=== PATIENT | male | born 1990 | race Caucasian/White ===

== ENCOUNTER 2021-09-02 19:25 | Emergency (ER) | payer BC ==
[2021-09-02] MEDS ORDERED: Sodium Chloride 0.9% 10 ML Syringe FLUSH PRN (20:29)
[2021-09-02] MEDS ORDERED: Sodium Chloride 0.9% 1,000 ML IV ONE (20:30)
[2021-09-02] MEDS ORDERED: Morphine 4 MG/ML Syringe IVPUSH PRN (20:30)
[2021-09-02] MEDS ORDERED: Ondansetron 4 MG/2 ML SDV IVPUSH PRN (20:30)
[2021-09-02] MEDS ORDERED: Famotidine 20 MG/2 ML SDV IVPUSH ONE (20:31)
[2021-09-02] MEDS ORDERED: Morphine 4 MG/ML Syringe IVPUSH ONE (21:34)
--- NOTE | 2021-09-02 21:38 | EDM.PDOC ---
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 PMH--tobacco use d/o Meds--denies NKDA Tob--1ppd EtOH--rare Drugs--marijuana Denies having had COVID infection nor has he had his COVID immunization Onset: Today, Sudden Right Lower Abdomen Pain Score (Numeric/FACES): 10 - Related Data Allergies Allergy/AdvReac Type Severity Reaction Status Date / Time cat dander Allergy Swollen Verified 09/02/21 20:03 Eyes Home Meds: Home Meds NK [No Known Home Meds] 01/30/14 [History] Past Medical History - Past Health History Medical/Surgical History: Denies Medical/Surgical History Musculoskeletal History: Reports: Fracture Neurological History: Reports: Headaches, Chronic Psychiatric History: Reports: Learning Disability, Other (See Below) Other Psychiatric History: dyslexia - Infectious Disease History Infectious Disease History: Reports: Chicken Pox - Past Surgical History Musculoskeletal Surgical History: Reports: Other (See Below) Other Musculoskeletal Surgeries/Procedures:: might have a yaneli in [place] Social & Family History - Tobacco Use Tobacco Use Status *Q: Current Every Day Tobacco User Years of Tobacco use: 15 Packs/Tins Daily: 1 - Caffeine Use Caffeine Use: Reports: Coffee, Soda - Recreational Drug Use Recreational Drug Use: Yes Recreational Drug Type: Reports: Marijuana/Hashish ED ROS GENERAL - Review of Systems Review Of Systems: Comprehensive ROS is negative, except as noted in HPI. Constitutional: Reports: Chills. Denies: Fever HEENT: Reports: No Symptoms Respiratory: Reports: No Symptoms Cardiovascular: Reports: No Symptoms Endocrine: Reports: No Symptoms GI/Abdominal: Reports: Abdominal Pain, Constipation (reported to [facility] hard stool yesterday). Denies: Diarrhea, Decreased Appetite, Nausea, Vomiting : Reports: No Symptoms Musculoskeletal: Reports: No Symptoms Skin: Reports: No Symptoms Neurological: Reports: No Symptoms Psychiatric: Reports: No Symptoms Hematologic/Lymphatic: Reports: No Symptoms Immunologic: Reports: No Symptoms ED EXAM, GI/ABD - Physical Exam Exam: See Below Exam Limited By: No Limitations General Appearance: Alert, WD/WN, Moderate Distress (secondary to abdominal pain) Eyes: Bilateral: Normal Appearance, EOMI Ears: Normal External Exam, Hearing Grossly Normal Nose: Normal Inspection Throat/Mouth: Normal Inspection, Normal Lips, Normal Oropharynx, Normal Voice, No Airway Compromise Head: Atraumatic, Normocephalic Neck: Normal Inspection, Supple, Non-Tender, Full Range of Motion Respiratory/Chest: No Respiratory Distress, Lungs Clear, Normal Breath Sounds, Chest Non-Tender Cardiovascular: Normal Peripheral Pulses, Regular Rate, Rhythm, No Edema, No Murmur GI/Abdominal Exam: Normal Bowel Sounds, Soft, No Distention, Guarding, Rebound, Tender (Patient has right lower quadrant tenderness he also is noted to have referred rebound from the left side of his abdomen to the right lower quadrant.). No: Rigid (Male) Exam: Deferred Rectal (Males) Exam: Deferred Back Exam: Normal Inspection, Full Range of Motion Extremities: Normal Inspection, Normal Range of Motion, No Pedal Edema, Normal Capillary Refill Neurological: Alert, Oriented, CN II-XII Intact, Normal Cognition, No Motor/Sensory Deficits Psychiatric: Normal Affect, Normal Mood Skin Exam: Warm, Dry, Intact, Normal Color Course - Vital Signs Text/Narrative:: 2140--noted on review of labs to have elevated white blood cell as well as elevated lactate acid. Amylase lipase and LFTs. Normal urinalysis. Patient continues to have intermittent pain episodes that have decreased in nature somewhat per nurse at this time will order CT abdomen pelvis with contrast to evaluate right lower quadrant pain. Have also ordered a dose of IV antibiotics/Zosyn one-time dose of morphine additional to the every 2 hours order so that he may lay still on CT table 2245--in room to discuss with patient and mother at bedside today's ER findings. I did discuss that we are currently awaiting CT abdomen pelvis results as read read by radiology. He states that he continues to have pain in his when asked how he is doing he just states bad and he does describe further that he was doing fairly well until he had to go to CT and when she dye was pushed that he started having increasing abdominal pain. I will notify [facility] of patient's return of pain and he may have his next dose can due. Continue to monitor and update patient and family as results return 2330--in room to d/w patient and mother at bedside today's CT findings and further recommendations in home care/PCM follow up as well as medications. will d/c once UA returns 0015--UDS has returned with noted marijuana as patient reports but also positive for methamphetamine. opiates likely related to morphine given in the ER. UA is pending at this time 004--reviewed UA, no acute infectous concerns at this time. will give toradol & oral norco at this time, ready for d/c Last Recorded V/S: Last Vital Signs Temp 97.9 F 09/02/21 20:00 Pulse 76 09/02/21 20:00 Resp 24 H 09/02/21 20:00 BP 142/85 H 09/02/21 20:00 Pulse Ox 100 09/02/21 20:00 - Orders/Labs/Meds Orders: Active Orders 24 hr Category Date Time Status Nothing per Oral Now Diet [DIET] Diet 09/03/21 Breakfast Active CULTURE BLOOD [BC] Urgent Lab 09/02/21 22:06 Received CULTURE BLOOD [BC] Urgent Lab 09/02/21 22:28 Received Iopamidol [Isovue-300 (61%)] Med 09/02/21 21:45 Active 130 ml IV . DIRECTED Morphine Med 09/02/21 20:30 Active 4 mg IVPUSH Q2H PRN Ondansetron [Zofran] Med 09/02/21 20:30 Active 4 mg IVPUSH Q6H PRN Piperacillin/Tazobactam [Zosyn] 3.375 gm Med 09/02/21 21:45 Active Sodium Chloride 0.9% [Normal Saline AdvBag] 50 ml IV ONETIME Sodium Chloride 0.9% [Normal Saline] 80 ml Med 09/02/21 21:45 Active IV ASDIRECTED Sodium Chloride 0.9% [Saline Flush] Med 09/02/21 20:29 Active 10 ml FLUSH ASDIRECTED PRN Blood Culture x2 Reflex Set [OM.PC] Urgent Oth 09/02/21 21:56 Ordered Saline Lock Insert [OM.PC] Routine Oth 09/02/21 20:29 Ordered Medication Orders Piperacillin Sod/Tazobactam (Sod 3.375 gm/ Sodium Chloride) 50 mls @ 100 mls/hr IV ONETIME BOBBY Last Admin: 09/02/21 22:28 Dose: 100 mls/hr Documented by: JUNE Sodium Chloride (Normal Saline) 80 mls @ 3.3 mls/sec IV ASDIRECTED BOBBY Last Admin: 09/02/21 21:55 Dose: 3.3 mls/sec Documented by: PABLO Iopamidol (Iopamidol 612 Mg/Ml 150 Ml Bottle) 130 ml IV . DIRECTED BOBBY Last Admin: 09/02/21 21:55 Dose: 130 ml Documented by: PABLO Morphine Sulfate (Morphine 4 Mg/Ml Syringe) 4 mg IVPUSH Q2H PRN PRN Reason: Pain Last Admin: 09/02/21 20:48 Dose: 4 mg Documented by: JUNE Ondansetron HCl (Ondansetron 4 Mg/2 Ml Sdv) 4 mg IVPUSH Q6H PRN PRN Reason: Nausea/Vomiting Last Admin: 09/02/21 20:47 Dose: 4 mg Documented by: JUNE Sodium Chloride (Sodium Chloride 0.9% 10 Ml Syringe) 10 ml FLUSH ASDIRECTED PRN PRN Reason: Keep Vein Open Last Admin: 09/02/21 20:48 Dose: 10 ml Documented by: JUNE Labs: Laboratory Tests 09/02/21 09/02/21 09/02/21 Range/Units 20:35 20:35 20:35 WBC 12.6 H (4.5-11.0) K/uL RBC 5.17 (4.30-5.90) M/uL Hgb 16.7 H (12.0-15.0) g/dL Hct 47.0 (40.0-54.0) % MCV 91 (80-98) fL MCH 32 H (27-31) pg MCHC 36 (32-36) % Plt Count 258 (150-400) K/uL Neut % (Auto) 78.5 H (36-66) % Lymph % (Auto) 13.9 L (24-44) % Bailey % (Auto) 6.9 H (2-6) % Eos % (Auto) 0.4 L (2-4) % Baso % (Auto) 0.3 (0-1) % Sodium 138 L (140-148) mmol/L Potassium 4.4 (3.6-5.2) mmol/L Chloride 101 (100-108) mmol/L Carbon Dioxide 24 (21-32) mmol/L Anion Gap 17.4 H (5.0-14.0) mmol/L BUN 16 (7-18) mg/dL Creatinine 1.2 (0.8-1.3) mg/dL Est Cr Clr Drug Dosing 95.87 mL/min Estimated GFR (MDRD) > 60 (>60) Glucose 163 H (74-106) mg/dL Lactic Acid 3.4 H (0.4-2.0) mmol/L Calcium 9.5 (8.5-10.1) mg/dL Magnesium (1.8-2.4) mg/dL Total Bilirubin 0.3 (0.2-1.0) mg/dL AST 9 L (15-37) U/L ALT 18 (12-78) U/L Alkaline Phosphatase 75 (46-116) U/L C-Reactive Protein < 0.05 (0.0-0.3) mg/dL Total Protein 7.3 (6.4-8.2) g/dL Albumin 4.1 (3.4-5.0) g/dL Globulin 3.2 (2.3-3.5) g/dL Albumin/Globulin Ratio 1.3 (1.2-2.2) Amylase 52 (25-115) U/L Lipase 115 (73-393) U/L Urine Color (YELLOW) Urine Appearance (CLEAR) Urine pH (5.0-8.0) Ur Specific Pioneer (1.008-1.030) Urine Protein (NEGATIVE) mg/dL Urine Glucose (UA) (NEGATIVE) mg/dL Urine Ketones (NEGATIVE) mg/dL Urine Occult Blood (NEGATIVE) Urine Nitrite (NEGATIVE) Urine Bilirubin (NEGATIVE) Urine Urobilinogen (0.2-1.0) EU/dL Ur Leukocyte Esterase (NEGATIVE) Urine RBC (0-5) Urine WBC (0-5) Ur Epithelial Cells Amorphous Sediment Urine Bacteria Urine Mucus Urine Opiates Screen (NEGATIVE) Ur Oxycodone Screen (NEGATIVE) Urine Methadone Screen (NEGATIVE) Ur Propoxyphene Screen (NEGATIVE) Ur Barbiturates Screen (NEGATIVE) Ur Tricyclics Screen (NEGATIVE) Ur Phencyclidine Scrn (NEGATIVE) Ur Amphetamine Screen (NEGATIVE) U Methamphetamines Scrn (NEGATIVE) Urine MDMA Screen (NEGATIVE) U Benzodiazepines Scrn (NEGATIVE) U Cocaine Metab Screen (NEGATIVE) U Marijuana (THC) Screen (NEGATIVE) 09/02/21 09/02/21 09/02/21 Range/Units 20:35 23:00 23:00 WBC (4.5-11.0) K/uL RBC (4.30-5.90) M/uL Hgb (12.0-15.0) g/dL Hct (40.0-54.0) % MCV (80-98) fL MCH (27-31) pg MCHC (32-36) % Plt Count (150-400) K/uL Neut % (Auto) (36-66) % Lymph % (Auto) (24-44) % Bailey % (Auto) (2-6) % Eos % (Auto) (2-4) % Baso % (Auto) (0-1) % Sodium (140-148) mmol/L Potassium (3.6-5.2) mmol/L Chloride (100-108) mmol/L Carbon Dioxide (21-32) mmol/L Anion Gap (5.0-14.0) mmol/L BUN (7-18) mg/dL Creatinine (0.8-1.3) mg/dL Est Cr Clr Drug Dosing mL/min Estimated GFR (MDRD) (>60) Glucose (74-106) mg/dL Lactic Acid (0.4-2.0) mmol/L Calcium (8.5-10.1) mg/dL Magnesium 1.8 (1.8-2.4) mg/dL Total Bilirubin (0.2-1.0) mg/dL AST (15-37) U/L ALT (12-78) U/L Alkaline Phosphatase (46-116) U/L C-Reactive Protein (0.0-0.3) mg/dL Total Protein (6.4-8.2) g/dL Albumin (3.4-5.0) g/dL Globulin (2.3-3.5) g/dL Albumin/Globulin Ratio (1.2-2.2) Amylase (25-115) U/L Lipase (73-393) U/L Urine Color Yellow (YELLOW) Urine Appearance Clear (CLEAR) Urine pH 8.5 H (5.0-8.0) Ur Specific Pioneer 1.015 (1.008-1.030) Urine Protein Negative (NEGATIVE) mg/dL Urine Glucose (UA) Negative (NEGATIVE) mg/dL Urine Ketones Negative (NEGATIVE) mg/dL Urine Occult Blood Small H (NEGATIVE) Urine Nitrite Negative (NEGATIVE) Urine Bilirubin Negative (NEGATIVE) Urine Urobilinogen 0.2 (0.2-1.0) EU/dL Ur Leukocyte Esterase Negative (NEGATIVE) Urine RBC 0-5 (0-5) Urine WBC 0-5 (0-5) Ur Epithelial Cells Rare Amorphous Sediment Not seen Urine Bacteria Few Urine Mucus Not seen Urine Opiates Screen Presumptive positive H (NEGATIVE) Ur Oxycodone Screen Negative (NEGATIVE) Urine Methadone Screen Negative (NEGATIVE) Ur Propoxyphene Screen Negative (NEGATIVE) Ur Barbiturates Screen Negative (NEGATIVE) Ur Tricyclics Screen Negative (NEGATIVE) Ur Phencyclidine Scrn Negative (NEGATIVE) Ur Amphetamine Screen Negative (NEGATIVE) U Methamphetamines Scrn Presumptive positive H (NEGATIVE) Urine MDMA Screen Negative (NEGATIVE) U Benzodiazepines Scrn Negative (NEGATIVE) U Cocaine Metab Screen Negative (NEGATIVE) U Marijuana (THC) Screen Presumptive positive H (NEGATIVE) Laboratory Tests 09/02/21 09/02/21 09/02/21 20:35 20:35 20:35 WBC 12.6 H Neut % (Auto) 78.5 H Sodium 138 L Anion Gap 17.4 H Lactic Acid 3.4 H C-Reactive Protein < 0.05 Meds: Medications Generic Name Dose Route Start Last Admin Trade Name Freq PRN Reason Stop Dose Admin Piperacillin Sod/Tazobactam 50 mls @ 100 mls/hr 09/02/21 21:45 09/02/21 22:28 Sod 3.375 gm/ Sodium Chloride IV 100 mls/hr ONETIME BOBBY Administration Sodium Chloride 80 mls @ 3.3 mls/sec 09/02/21 21:45 09/02/21 21:55 Normal Saline IV 3.3 mls/sec ASDIRECTED BOBBY Administration Iopamidol 130 ml 09/02/21 21:45 09/02/21 21:55 Iopamidol 612 Mg/Ml 150 Ml Bottle IV 130 ml . DIRECTED BOBBY Administration Morphine Sulfate 4 mg 09/02/21 20:30 09/02/21 20:48 Morphine 4 Mg/Ml Syringe IVPUSH 4 mg Q2H PRN Administration Pain Ondansetron HCl 4 mg 09/02/21 20:30 09/02/21 20:47 Ondansetron 4 Mg/2 Ml Sdv IVPUSH 4 mg Q6H PRN Administration Nausea/Vomiting Sodium Chloride 10 ml 09/02/21 20:29 09/02/21 20:48 Sodium Chloride 0.9% 10 Ml Syringe FLUSH 10 ml ASDIRECTED PRN Administration Keep Vein Open Discontinued Medications Generic Name Dose Route Start Last Admin Trade Name Freq PRN Reason Stop Dose Admin Famotidine 20 mg 09/02/21 20:31 09/02/21 20:48 Famotidine 20 Mg/2 Ml Sdv IVPUSH 09/02/21 20:32 20 mg ONETIME ONE Administration Sodium Chloride 1,000 mls @ 500 mls/hr 09/02/21 20:30 09/02/21 20:47 Normal Saline IV 09/02/21 22:29 500 mls/hr .BOLUS ONE Administration Morphine Sulfate 4 mg 09/02/21 21:34 09/02/21 21:42 Morphine 4 Mg/Ml Syringe IVPUSH 09/02/21 21:35 4 mg ONETIME ONE Administration Tamsulosin HCl 0.4 mg 09/02/21 23:14 09/02/21 23:22 Tamsulosin 0.4 Mg Cap.Er PO 09/02/21 23:15 0.4 mg ONETIME ONE Administration - Radiology Interpretation CT Results Date: 09/02/21 CT Results Time: 23:13 (CT abdomen pelvis with IV contrast is negative with the following impression recurrent distal right ureteral calculus gross ATV take junction measuring 3 to 4 mm with some mild right hydronephrosis report for full details) Departure - Departure Time of Disposition: 00:45 Disposition: Home, Self-Care 01 Condition: Good Clinical Impression: Right nephrolithiasis, Dehydration, Methamphetamine abuse, Marijuana use, Elevated blood pressure reading Hydronephrosis Qualifiers: Hydronephrosis type: with ureteropelvic junction obstruction Qualified Code(s): Q62.11 - Congenital occlusion of ureteropelvic junction - Discharge Information *PRESCRIPTION DRUG MONITORING PROGRAM REVIEWED*: Yes *COPY OF PRESCRIPTION DRUG MONITORING REPORT IN PATIENT DEYSI: Not Applicable Instructions: Kidney Stones, [id number], Hydronephrosis, Dietary Guidelines to Help Prevent Kidney Stones, Dehydration, Adult Referrals: PCP,None [Primary Care Provider] - Forms: ED Department Discharge Additional Instructions: It is recommended that you follow-up with your primary care provider or the primary care clinic care located at [facility] in the next 2 to 3 days regarding darlyn's ER visit and diagnosis of kidney stone on the right side with mild hydronephrosis which is fluid in the kidney. You are having further difficulty passing kidney stone and unable to pass it you may require referral to urology for further evaluation and care I have provided you with an anti-inflammatory called ketorolac (Toradol)--presents for moderate pain and discomfort as well as the anti- inflammatory effects. Do not use any ibuprofen (Motrin, Advil) or naproxen (Aleve) which is available [id number] anesthesia in the same medications as the ketorolac that I have provided prescription strength for your pain. Doubling of these medications is not good for your kidneys. I also provided you with a limited amount of pain medication for severe pain discomfort. This medication is hydrocodone/acetaminophen ([place]). You will need to be seen in the clinic should you need further refills of this medication as we do not provide that in the emergency room Ensure that you are drinking plenty of fluidswater, juice, sports drinks of choice to stay well-hydrated and help flush your kidneys to help move this kidney stone through. You may also use cranberry juice (please read the label as you may find that most cranberry juice products are truly cranberry cocktail and contain little cranberry juice and more sugar water) Sepsis Event Note (ED) - Focused Exam Vital Signs: Vital Signs Temp Pulse Resp BP Pulse Ox 09/02/21 20:00 97.9 F 76 24 H 142/85 H 100 - My Orders Last 24 Hours: My Active Orders 09/02/21 20:29 Sodium Chloride 0.9% [Saline Flush] 10 ml FLUSH ASDIRECTED PRN Saline Lock Insert [OM.PC] Routine 09/02/21 20:30 Morphine 4 mg IVPUSH Q2H PRN Ondansetron [Zofran] 4 mg IVPUSH Q6H PRN 09/02/21 21:45 Iopamidol [Isovue-300 (61%)] 130 ml IV . DIRECTED Piperacillin/Tazobactam [Zosyn] 3.375 gm Sodium Chloride 0.9% [Normal Saline AdvBag] 50 ml IV ONETIME Sodium Chloride 0.9% [Normal Saline] 80 ml IV ASDIRECTED 09/02/21 21:56 Blood Culture x2 Reflex Set [OM.PC] Urgent 09/02/21 22:06 CULTURE BLOOD [BC] Urgent 09/02/21 22:28 CULTURE BLOOD [BC] Urgent 09/03/21 Breakfast Nothing per Oral Now Diet [DIET] - Assessment/Plan Last 24 Hours: My Active Orders 09/02/21 20:29 Sodium Chloride 0.9% [Saline Flush] 10 ml FLUSH ASDIRECTED PRN Saline Lock Insert [OM.PC] Routine 09/02/21 20:30 Morphine 4 mg IVPUSH Q2H PRN Ondansetron [Zofran] 4 mg IVPUSH Q6H PRN 09/02/21 21:45 Iopamidol [Isovue-300 (61%)] 130 ml IV . DIRECTED Piperacillin/Tazobactam [Zosyn] 3.375 gm Sodium Chloride 0.9% [Normal Saline AdvBag] 50 ml IV ONETIME Sodium Chloride 0.9% [Normal Saline] 80 ml IV ASDIRECTED 09/02/21 21:56 Blood Culture x2 Reflex Set [OM.PC] Urgent 09/02/21 22:06 CULTURE BLOOD [BC] Urgent 09/02/21 22:28 CULTURE BLOOD [BC] Urgent 09/03/21 Breakfast Nothing per Oral Now Diet [DIET]
[2021-09-02] MEDS ORDERED: Piperacillin/Tazobactam 3.375 GM in Sodium Chloride 0.9% 50 ML IV SCH (21:45)
[2021-09-02] MEDS ORDERED: Iopamidol 612 MG/ML 150 ML Bottle IV SCH (21:45)
[2021-09-02] MEDS ORDERED: Sodium Chloride 0.9% 80 ML IV SCH (21:45)
--- NOTE | 2021-09-02 22:49 | CRLCT ---
For Patients: As a result of the Century Cures Act, medical imaging exams and procedure reports are released immediately into your electronic medical record. You may view this report before your referring provider. If you have questions, please contact your health care provider. INDICATION: Right lower quadrant abdominal pain, elevated WBC and lactic acid. TECHNIQUE: CT abdomen and pelvis acquired with 130 cc Isovue-300 IV contrast. COMPARISON: None. FINDINGS: Lower chest: Unremarkable. Liver: Unremarkable. Normal in size and attenuation. No suspicious masses. Gallbladder and bile ducts: Unremarkable. No stones or inflammation. No biliary dilation. Pancreas: Unremarkable. No mass or inflammation. Spleen: Unremarkable. Normal in size. No masses. Adrenal glands: Unremarkable. No nodules. Kidneys: Calcification at the right ureterovesicular junction measures approximately 3-4 mm (3/197) results in mild right hydronephrosis and hydroureter, along with a delayed right nephrogram. Several nonobstructing calcifications in the left kidney, which shows congenital malrotation. GI tract: Unremarkable. Normal in caliber. No sign of mass or inflammation. Normal appendix. Vasculature: Unremarkable. Mesenteric arteries are patent. Lymph nodes: No lymphadenopathy. Omentum/Peritoneum/Abdominal Wall: Unremarkable. No sign of mass or infiltration. No free air or significant free fluid. Pelvis: Unremarkable. Bones: Unremarkable for age. IMPRESSION: Distal right ureteral calcification at the UVJ measures 3-4 mm and results in mild right hydronephrosis and delayed nephrogram. Please note that all CT scans at this facility use dose modulation, iterative reconstruction, and/or weight-based dosing when appropriate to reduce radiation dose to as low as reasonably achievable. Dictated by Milo Geronimo MD @ 09/02/2021 10:48:43 PM (Electronically Signed)
[2021-09-02] MEDS ORDERED: Tamsulosin 0.4 MG Cap.ER PO ONE (23:14)
[2021-09-03] MEDS ORDERED: Ketorolac 30 MG/ML SDV IVPUSH ONE (00:45)
[2021-09-03] MEDS ORDERED: Acetaminophen/HYDROcodone 325-5 MG Tab PO ONE (00:46)
[2021-09-03] MEDS ORDERED: Ondansetron 4 MG/2 ML SDV IVPUSH ONE (00:47)
== END 2021-09-03 01:11 | disposition home or self-care (01) ==
LOC: JP.ED 19:25
DX: N13.2 Hydronephrosis with renal and ureteral calculous obstruction (principal); E86.0 Dehydration; F15.10 Other stimulant abuse, uncomplicated; F12.90 Cannabis use, unspecified, uncomplicated; R03.0 Elevated blood-pressure reading, without diagnosis of hypertension; F17.210 Nicotine dependence, cigarettes, uncomplicated; Z91.09 Other allergy status, other than to drugs and biological substances
CPT/HCPCS: 36415; 74177; 80053; 80305; 81001; 82150; 83605; 83690; 83735; 85025; 86140; 87040; 96365; 96375; 96376; 99284; A9270; J1885; J2270; J2405; J2543; J3490; J7030; Q9967

== ENCOUNTER 2021-12-21 13:18 | Emergency (ER) | payer BC ==
[2021-12-21] MEDS ORDERED: Ketorolac 30 MG/ML SDV IM ONE (13:55)
[2021-12-21] MEDS ORDERED: HYDROmorphone 1 MG/ML Syringe IM ONE (14:36)
== END 2021-12-21 15:53 | disposition home or self-care (01) ==
LOC: JP.ED 13:18
DX: N13.2 Hydronephrosis with renal and ureteral calculous obstruction (principal); Z91.09 Other allergy status, other than to drugs and biological substances; Z72.0 Tobacco use
CPT/HCPCS: 74176; 96372; 96374; 99283; 99284-25; J1170; J1885

== ENCOUNTER 2023-01-25 09:50 | Inpatient (IN) | payer BC ==
[2023-01-25] MEDS ORDERED: LORazepam 2 MG/ML SDV IVPUSH ONE (10:25)
[2023-01-25] MEDS ORDERED: Sodium Chloride 0.9% 1,000 ML IV SCH (10:30)
[2023-01-25 10:38] LABS: BASOPHILS PERCENT AUTO 0.1 % (0.1-1.3); HEMATOCRIT 44.4 % (38.4-49.7); HEMOGLOBIN 15.2 g/dL (12.9-16.9); IMMATURE GRAN ABSOLUTE AUTO 0.03 K/uL (0.00-0.23); IMMATURE GRAN PERCENT AUTO 0.3 % (0.0-0.7); LYMPHOCYTES ABSOLUTE AUTO 0.94 K/uL (0.8-3.3); LYMPHOCYTES PERCENT AUTO 8.5 % (11.4-47.7); MEAN CORPUSCULAR HEMOGLOBIN 32.3 pg (31.6-35.5); MEAN CORPUSCULAR HGB CONC 34.2 g/dL (31.6-35.5); MEAN CORPUSCULAR VOLUME 94.5 fL (81.4-99.0); MONOCYTES ABSOLUTE AUTO 0.34 K/uL (0.20-0.90); MONOCYTES PERCENT AUTO 3.1 % (3.3-12.6); NEUTROPHILS ABSOLUTE AUTO 9.77 K/uL (1.0-7.6); PLATELET COUNT,PLT 178 K/uL (130-375); WHITE BLOOD CELL COUNT,WBC 11.1 K/uL (3.2-11.0)
[2023-01-25 10:39] LABS: BASOPHILS ABSOLUTE AUTO 0.01 K/uL (0.00-0.10)
[2023-01-25] MEDS ORDERED: Ketorolac 15 MG/ML SDV IVPUSH ONE (10:53)
[2023-01-25 10:54] LABS: A/G RATIO 0.8 (1.2-2.2); ALANINE AMINOTRANSFERASE,ALT 13 U/L (12-78); ALKALINE PHOSPHATASE 76 U/L (46-116); ANION GAP 12.9 mmol/L (5.0-14.0); ASPARTATE AMNIOTRANSFERASE,AST 21 U/L (15-37); BILIRUBIN TOTAL 1.2 mg/dL (0.2-1.0); BLOOD UREA NITROGEN,BUN 24 mg/dL (7-18); CALCIUM 8.5 mg/dL (8.5-10.1); CARBON DIOXIDE,CO2 25 mmol/L (21-32); CHLORIDE,CL 93 mmol/L (100-108); CREATININE 1.8 mg/dL (0.8-1.3); EST CRCL DRUG DOSING (CG) 62.75 mL/min; ESTIMATED GFR 51 mL/min (>60); GLUCOSE RANDOM 106 mg/dL (74-106); POTASSIUM,K 3.9 mmol/L (3.6-5.2); PROTEIN TOTAL,TP 6.9 g/dL (6.4-8.2); SODIUM,NA 127 mmol/L (140-148)
[2023-01-25] MEDS ORDERED: Meropenem 1 GM in Sodium Chloride 0.9% 100 ML IV ONE (11:11)
[2023-01-25 13:05] LABS: CORONAVIRUS COVID-19 NAA NEGATIVE (NEGATIVE); INFLUENZA A NAA NEGATIVE (NEGATIVE); INFLUENZA B NAA NEGATIVE (NEGATIVE); RESPIRATORY SYNCYTIAL VIR NAA NEGATIVE (NEGATIVE)
[2023-01-25] MEDS ORDERED: Ondansetron 4 MG/2 ML SDV IV PRN (14:46)
[2023-01-25] MEDS ORDERED: Nicotine 21 MG/24 Hr Patch TRDERM PRN (14:46)
[2023-01-25] MEDS ORDERED: Magnesium Hydroxide 400 MG/5 ML Susp 30 ML Cup PO PRN (14:46)
[2023-01-25] MEDS ORDERED: Ondansetron 4 MG Tab.DIS PO PRN (14:46)
[2023-01-25] MEDS ORDERED: Acetaminophen 325 MG Tab PO PRN (14:46)
[2023-01-25 15:04] LABS: APPEARANCE,URINE SLIGHTLY CLOUDY (CLEAR); BILIRUBIN,URINE SMALL (NEGATIVE); GLUCOSE,URINE NEGATIVE (NEGATIVE); KETONES,URINE NEGATIVE (NEGATIVE); LEUKOCYTE ESTERASE,URINE NEGATIVE (NEGATIVE); NITRITE,URINE NEGATIVE (NEGATIVE); OCCULT BLOOD,URINE NEGATIVE (NEGATIVE); PH,URINE 5.5 (5.0-8.0); PROTEIN,URINE 100 mg/dL (NEGATIVE); UROBILINOGEN,URINE 0.2 EU/dL (0.2-1.0)
[2023-01-25 15:17] LABS: AMORPHOUS SEDIMENT,URINE FEW; BACTERIA,URINE MODERATE; COLOR,URINE OTHER (YELLOW); EPITHELIAL CELLS,URINE FEW; MUCUS,URINE FEW; RBC,URINE 0-5 (0-5)
[2023-01-25 15:18] LABS: AMPHETAMINES SCREEN, URINE PRESUMPTIVE POSITIVE (NEGATIVE); BARBITURATE SCREEN,URINE NEGATIVE (NEGATIVE); BENZODIAZEPINES SCREEN,URINE NEGATIVE (NEGATIVE); METHADONE SCREEN, URINE NEGATIVE (NEGATIVE); METHAMPHETAMINES SCREEN, URINE PRESUMPTIVE POSITIVE (NEGATIVE); OXYCODONE SCREEN,URINE PRESUMPTIVE POSITIVE (NEGATIVE)
[2023-01-25 15:19] LABS: PROPOXYPHENE SCREEN,URINE NEGATIVE (NEGATIVE); THC SCREEN,URINE 50 NG/ML PRESUMPTIVE POSITIVE (NEGATIVE)
[2023-01-25] MEDS: Sodium Chloride 0.9% 1,000 ML IV SCH (15:49)
[2023-01-25] MEDS: oxyCODONE 5 MG Tab PO PRN (15:58)
[2023-01-25 16:46] LABS: CALCIUM 8.2 mg/dL (8.5-10.1); EST CRCL DRUG DOSING (CG) 56.48 mL/min; POTASSIUM,K 3.8 mmol/L (3.6-5.2)
[2023-01-25 16:57] LABS: ANION GAP 11.8 mmol/L (5.0-14.0)
[2023-01-25] MEDS: Meropenem 1 GM in Sodium Chloride 0.9% 100 ML IV SCH (19:58)
[2023-01-25] MEDS: Lactobacillus Rhamnosus GG (Probiotic) Cap PO SCH (20:00)
[2023-01-25] MEDS ORDERED: Pantoprazole 40 MG Tab.CR PO SCH (21:00)
[2023-01-26] MEDS: oxyCODONE 5 MG Tab PO PRN ×2 (00:45→05:01)
[2023-01-26] MEDS ORDERED: Ketorolac 15 MG/ML SDV IVPUSH ONE (00:45)
[2023-01-26] MEDS ORDERED: Ketorolac 15 MG/ML SDV ONE (00:45)
[2023-01-26] MEDS: Sodium Chloride 0.9% 1,000 ML IV SCH (00:46)
[2023-01-26] MEDS: Meropenem 1 GM in Sodium Chloride 0.9% 100 ML IV SCH ×3 (03:03→14:06)
[2023-01-26 04:36] LABS: HEMATOCRIT 36.5 % (38.4-49.7); HEMOGLOBIN 12.5 g/dL (12.9-16.9); MEAN CORPUSCULAR HEMOGLOBIN 32.9 pg (31.6-35.5); MEAN CORPUSCULAR HGB CONC 34.2 g/dL (31.6-35.5); MEAN CORPUSCULAR VOLUME 96.1 fL (81.4-99.0); RED BLOOD CELL COUNT 3.8 M/uL (4.14-5.76); WHITE BLOOD CELL COUNT,WBC 7.6 K/uL (3.2-11.0)
[2023-01-26 05:47] LABS: CREATININE 1.4 mg/dL (0.8-1.3); EST CRCL DRUG DOSING (CG) 80.68 mL/min; POTASSIUM,K 3.5 mmol/L (3.6-5.2)
[2023-01-26 05:48] LABS: ANION GAP 9.5 mmol/L (5.0-14.0)
[2023-01-26] MEDS ORDERED: Lidocaine 1% with EPINEPHrine 1:100,000 50 ML MDV ONE (07:42)
[2023-01-26] MEDS ORDERED: Meropenem 500 MG SDV ONE ×3 (07:42→11:29)
[2023-01-26] MEDS ORDERED: Bupivacaine 0.5% 50 ML MDV ONE (07:42)
[2023-01-26] MEDS ORDERED: Dextrose 5%-Lactated Ringers 1,000 ML IV SCH (07:45)
[2023-01-26] MEDS ORDERED: Naloxone 0.4 MG/ML SDV IVPUSH PRN ×2 (07:49→10:54)
[2023-01-26] MEDS ORDERED: HYDROmorphone/Normal Saline 6 MG/30 ML PCA Vial IV PRN (07:49)
[2023-01-26] MEDS ORDERED: diphenhydrAMINE 50 MG/ML SDV IVPUSH PRN ×2 (07:49→10:54)
[2023-01-26] MEDS ORDERED: diphenhydrAMINE 25 MG Cap PO PRN ×2 (07:49→10:54)
[2023-01-26] MEDS ORDERED: Ondansetron 4 MG/2 ML SDV IVPUSH PRN ×2 (07:49→10:54)
[2023-01-26] MEDS: Lactobacillus Rhamnosus GG (Probiotic) Cap PO SCH (08:15)
[2023-01-26] MEDS ORDERED: Dexamethasone 4 MG/ML SDV ONE (09:33)
[2023-01-26] MEDS ORDERED: Succinylcholine 200 MG/10 ML MDV ONE (09:33)
[2023-01-26] MEDS ORDERED: Propofol 200 MG/20 ML SDV ONE (09:33)
[2023-01-26] MEDS ORDERED: Rocuronium 50 MG/5 ML Vial ONE ×2 (09:33→10:32)
[2023-01-26] MEDS ORDERED: Ondansetron 4 MG/2 ML SDV ONE (09:33)
[2023-01-26] MEDS ORDERED: Glycopyrrolate 0.2 MG/ML 5 ML MDV ONE (09:33)
[2023-01-26] MEDS ORDERED: Neostigmine Methylsulfate 1 MG/ML 5 ML Syringe ONE (09:33)
[2023-01-26] MEDS ORDERED: fentaNYL 250 MCG/5 ML SDV ONE ×2 (09:35→10:32)
[2023-01-26] MEDS ORDERED: Linezolid 600 MG/300 ML Premix Bag IRR ONE ×3 (11:00→11:30)
[2023-01-26] MEDS ORDERED: Ketamine 22 MG in Sodium Chloride 0.9% 19.78 ML IV SCH (11:00)
[2023-01-26] MEDS ORDERED: Ropivacaine 46 ML, dexAMETHasone 8 MG, EPINEPHrine 0.4 MG, Sodium Chloride 0.9% 31.6 ML NERVRT SCH ×4 (11:00)
[2023-01-26] MEDS ORDERED: Ketamine 500 MG/5 ML MDV IV SCH (11:00)
[2023-01-26] MEDS ORDERED: Lactated Ringers 1,000 ML ONE (11:02)
[2023-01-26] MEDS ORDERED: Labetalol 20 MG/4 ML Syringe ONE (11:21)
[2023-01-26] MEDS: Linezolid 600 MG in Premix Bag 1 BAG IV SCH (13:17)
[2023-01-26] MEDS ORDERED: Scopolamine 1.5 MG Transdermal Patch TOP SCH (13:30)
[2023-01-26] MEDS: HYDROmorphone/Normal Saline 6 MG/30 ML PCA Vial IV PRN (13:44)
[2023-01-26] MEDS ORDERED: Ondansetron 4 MG/2 ML SDV IV PRN (13:56)
[2023-01-26] MEDS: Dextrose 5%-Lactated Ringers 1,000 ML IV SCH ×2 (15:01→21:19)
[2023-01-26] MEDS: VERIFY SCOP PATCH SCH (16:30)
[2023-01-26] MEDS: Meropenem 500 MG in Sodium Chloride 0.9% 50 ML IV SCH ×2 (16:30→22:12)
[2023-01-26] MEDS: Pantoprazole 40 MG Vial IV SCH (16:30)
[2023-01-26] MEDS: Acetaminophen 500 MG Tab PO SCH ×2 (17:48→23:34)
[2023-01-26] MEDS ORDERED: ClonazePAM 0.5 MG Tab PO PRN (18:53)
[2023-01-26] MEDS ORDERED: cloNIDine 0.1 MG Tab PO PRN (19:13)
[2023-01-26] MEDS ORDERED: cloNIDine 0.1 MG Tab PO SCH (19:15)
[2023-01-26] MEDS: cloNIDine 0.1 MG Tab PO PRN (19:52)
[2023-01-26] MEDS: Bisacodyl 5 MG Tab PO SCH (22:11)
[2023-01-26] MEDS: Docusate Sodium 100 MG Cap PO SCH (22:11)
[2023-01-26] MEDS: Tamsulosin 0.4 MG Cap.ER PO SCH (22:12)
[2023-01-26] MEDS: Celecoxib 200 MG Cap PO SCH (22:12)
[2023-01-27] MEDS: Linezolid 600 MG in Premix Bag 1 BAG IV SCH ×2 (02:21→14:41)
[2023-01-27] MEDS: cloNIDine 0.1 MG Tab PO PRN (02:44)
[2023-01-27] MEDS: Meropenem 500 MG in Sodium Chloride 0.9% 50 ML IV SCH ×4 (03:55→21:09)
[2023-01-27] MEDS: Dextrose 5%-Lactated Ringers 1,000 ML IV SCH ×2 (05:36→13:41)
[2023-01-27] MEDS: Acetaminophen 500 MG Tab PO SCH ×4 (05:50→23:06)
[2023-01-27] MEDS ORDERED: Cyclobenzaprine 10 MG Tab PO PRN ×2 (07:32→16:54)
[2023-01-27] MEDS ORDERED: Haloperidol Lactate 5 MG/ML SDV IVPUSH PRN (07:32)
[2023-01-27] MEDS: Albuterol/Ipratropium 3.0-0.5 MG/3 ML Neb Soln NEB SCH ×3 (07:49→19:51)
[2023-01-27] MEDS: Celecoxib 200 MG Cap PO SCH ×2 (08:11→21:06)
[2023-01-27] MEDS: Docusate Sodium 100 MG Cap PO SCH ×2 (08:11→21:06)
[2023-01-27] MEDS: Enoxaparin 40 MG/0.4 ML Syringe SUBCUT SCH (08:12)
[2023-01-27] MEDS: VERIFY SCOP PATCH SCH (08:13)
[2023-01-27] MEDS: Bisacodyl 5 MG Tab PO SCH ×2 (08:16→21:05)
[2023-01-27] MEDS: HYDROmorphone/Normal Saline 6 MG/30 ML PCA Vial IV PRN (08:37)
[2023-01-27] MEDS: Potassium Chloride 20 MEQ, Lidocaine 1% 2 ML in Sodium Chloride 0.9% 100 ML IV SCH ×3 (10:42→14:44)
[2023-01-27] MEDS: Pantoprazole 40 MG Vial IV SCH (15:46)
[2023-01-27] MEDS: Tamsulosin 0.4 MG Cap.ER PO SCH (21:05)
[2023-01-28] MEDS: Dextrose 5%-Lactated Ringers 1,000 ML IV SCH ×2 (00:17→12:25)
[2023-01-28] MEDS: HYDROmorphone/Normal Saline 6 MG/30 ML PCA Vial IV PRN ×3 (01:43→22:52)
[2023-01-28] MEDS: Albuterol/Ipratropium 3.0-0.5 MG/3 ML Neb Soln NEB SCH ×4 (01:48→19:44)
[2023-01-28] MEDS: Linezolid 600 MG in Premix Bag 1 BAG IV SCH (01:52)
[2023-01-28] MEDS: Meropenem 500 MG in Sodium Chloride 0.9% 50 ML IV SCH ×4 (04:13→21:31)
[2023-01-28 04:45] LABS: HEMATOCRIT 32.7 % (38.4-49.7); MEAN CORPUSCULAR HEMOGLOBIN 32.3 pg (31.6-35.5); MEAN CORPUSCULAR HGB CONC 33.6 g/dL (31.6-35.5); MEAN CORPUSCULAR VOLUME 95.9 fL (81.4-99.0); RED BLOOD CELL COUNT 3.41 M/uL (4.14-5.76)
[2023-01-28 05:14] LABS: A/G RATIO 0.5 (1.2-2.2); ALANINE AMINOTRANSFERASE,ALT 13 U/L (12-78); ALBUMIN 1.8 g/dL (3.4-5.0); ALKALINE PHOSPHATASE 62 U/L (46-116); ASPARTATE AMNIOTRANSFERASE,AST 18 U/L (15-37); BILIRUBIN TOTAL 0.3 mg/dL (0.2-1.0); BLOOD UREA NITROGEN,BUN 11 mg/dL (7-18); CALCIUM 7.6 mg/dL (8.5-10.1); CARBON DIOXIDE,CO2 31 mmol/L (21-32); CHLORIDE,CL 98 mmol/L (100-108); CREATININE 0.9 mg/dL (0.8-1.3); ESTIMATED GFR 116 mL/min (>60); GLUCOSE RANDOM 145 mg/dL (74-106); MAGNESIUM 1.6 mg/dL (1.8-2.4); PHOSPHORUS 1.6 mg/dL (2.5-4.9); POTASSIUM,K 3.2 mmol/L (3.6-5.2); PROTEIN TOTAL,TP 5.4 g/dL (6.4-8.2); SODIUM,NA 133 mmol/L (140-148)
[2023-01-28 05:17] LABS: ANION GAP 7.2 mmol/L (5.0-14.0)
[2023-01-28] MEDS: Acetaminophen 500 MG Tab PO SCH ×4 (05:41→23:47)
[2023-01-28] MEDS ORDERED: Potassium Phosphates 3 mMole/ML 15 ML SDV IV ONE (07:28)
[2023-01-28] MEDS ORDERED: Potassium Chloride 20 MEQ Tab.ER PO ONE ×2 (08:15→12:00)
[2023-01-28] MEDS: Celecoxib 200 MG Cap PO SCH ×2 (08:24→21:31)
[2023-01-28] MEDS: Bisacodyl 5 MG Tab PO SCH ×2 (08:24→21:31)
[2023-01-28] MEDS: Docusate Sodium 100 MG Cap PO SCH ×2 (08:25→21:31)
[2023-01-28] MEDS: VERIFY SCOP PATCH SCH (08:25)
[2023-01-28] MEDS: Enoxaparin 40 MG/0.4 ML Syringe SUBCUT SCH (08:25)
[2023-01-28] MEDS: Albumin Human 25 GM in Premix Bag 1 BAG IV SCH ×2 (08:38→16:06)
[2023-01-28] MEDS: Scopolamine 1.5 MG Transdermal Patch TOP SCH (10:20)
[2023-01-28] MEDS: Potassium Phos in 0.9 % NaCl 15 MMOL in Premix Bag 1 BAG IV SCH ×8 (10:49→19:43)
[2023-01-28] MEDS: Pantoprazole 40 MG Vial IV SCH (15:44)
[2023-01-28] MEDS: Tamsulosin 0.4 MG Cap.ER PO SCH (21:31)
[2023-01-29] MEDS: Meropenem 500 MG in Sodium Chloride 0.9% 50 ML IV SCH ×4 (03:01→23:55)
[2023-01-29] MEDS: Albuterol/Ipratropium 3.0-0.5 MG/3 ML Neb Soln NEB SCH ×4 (03:01→20:24)
[2023-01-29 05:04] LABS: HEMATOCRIT 33.3 % (38.4-49.7); HEMOGLOBIN 11.3 g/dL (12.9-16.9); MEAN CORPUSCULAR HEMOGLOBIN 32.7 pg (31.6-35.5); MEAN CORPUSCULAR HGB CONC 33.9 g/dL (31.6-35.5); MEAN CORPUSCULAR VOLUME 96.2 fL (81.4-99.0); RED BLOOD CELL COUNT 3.46 M/uL (4.14-5.76); WHITE BLOOD CELL COUNT,WBC 8.3 K/uL (3.2-11.0)
[2023-01-29] MEDS: Acetaminophen 500 MG Tab PO SCH ×3 (05:08→17:20)
[2023-01-29 05:32] LABS: A/G RATIO 0.6 (1.2-2.2); ALANINE AMINOTRANSFERASE,ALT 14 U/L (12-78); ALBUMIN 2.2 g/dL (3.4-5.0); ALKALINE PHOSPHATASE 69 U/L (46-116); ASPARTATE AMNIOTRANSFERASE,AST 14 U/L (15-37); BILIRUBIN TOTAL 0.4 mg/dL (0.2-1.0); BLOOD UREA NITROGEN,BUN 9 mg/dL (7-18); CALCIUM 8.3 mg/dL (8.5-10.1); CARBON DIOXIDE,CO2 33 mmol/L (21-32); CHLORIDE,CL 99 mmol/L (100-108); CREATININE 0.7 mg/dL (0.8-1.3); EST CRCL DRUG DOSING (CG) 161.36 mL/min; ESTIMATED GFR 126 mL/min (>60); GLUCOSE RANDOM 108 mg/dL (74-106); PHOSPHORUS 2.9 mg/dL (2.5-4.9); PROTEIN TOTAL,TP 5.7 g/dL (6.4-8.2); SODIUM,NA 137 mmol/L (140-148)
[2023-01-29] MEDS ORDERED: Bupivacaine 0.5% 50 ML MDV ONE (06:45)
[2023-01-29] MEDS ORDERED: Meropenem 500 MG SDV ONE (06:45)
[2023-01-29] MEDS ORDERED: Lidocaine 1% with EPINEPHrine 1:100,000 50 ML MDV ONE (06:45)
[2023-01-29 06:48] LABS: HEMOGLOBIN A1C 5.7 % (4.5-6.2)
[2023-01-29] MEDS ORDERED: fentaNYL 100 MCG/2 ML SDV ONE (07:02)
[2023-01-29] MEDS ORDERED: Propofol 200 MG/20 ML SDV ONE ×3 (07:02→07:40)
[2023-01-29] MEDS ORDERED: Ropivacaine 46 ML, dexAMETHasone 8 MG, EPINEPHrine 0.4 MG, Sodium Chloride 0.9% 31.6 ML NERVRT SCH ×4 (07:15)
[2023-01-29] MEDS ORDERED: Ondansetron 4 MG/2 ML SDV ONE (07:23)
[2023-01-29] MEDS: HYDROmorphone/Normal Saline 6 MG/30 ML PCA Vial IV PRN (07:30)
[2023-01-29] MEDS ORDERED: Labetalol 20 MG/4 ML Syringe ONE (07:51)
[2023-01-29] MEDS ORDERED: HYDROmorphone/Normal Saline 6 MG/30 ML PCA Vial IV PRN (08:23)
[2023-01-29] MEDS: Dextrose 5%-Lactated Ringers 1,000 ML IV SCH (08:42)
[2023-01-29] MEDS: Docusate Sodium 100 MG Cap PO SCH ×2 (09:40→20:25)
[2023-01-29] MEDS: Celecoxib 200 MG Cap PO SCH ×2 (09:40→20:25)
[2023-01-29] MEDS: Bisacodyl 5 MG Tab PO SCH ×2 (09:40→20:25)
[2023-01-29] MEDS: Enoxaparin 40 MG/0.4 ML Syringe SUBCUT SCH (09:42)
[2023-01-29] MEDS: VERIFY SCOP PATCH SCH (09:43)
[2023-01-29] MEDS: Cyclobenzaprine 10 MG Tab PO SCH ×2 (09:46→17:21)
[2023-01-29] MEDS: Albumin Human 25 GM in Premix Bag 1 BAG IV SCH ×2 (10:10→16:10)
[2023-01-29] MEDS: Pantoprazole 40 MG Tab.CR PO SCH (16:10)
[2023-01-29] MEDS: Tamsulosin 0.4 MG Cap.ER PO SCH (20:26)
[2023-01-30] MEDS: Acetaminophen 500 MG Tab PO SCH ×5 (00:46→23:00)
[2023-01-30] MEDS: Cyclobenzaprine 10 MG Tab PO SCH ×3 (03:33→17:58)
[2023-01-30] MEDS: Meropenem 500 MG in Sodium Chloride 0.9% 50 ML IV SCH ×4 (03:33→22:30)
[2023-01-30] MEDS: Albuterol/Ipratropium 3.0-0.5 MG/3 ML Neb Soln NEB SCH ×5 (03:33→20:12)
[2023-01-30] MEDS: Dextrose 5%-Lactated Ringers 1,000 ML IV SCH (08:02)
[2023-01-30] MEDS: oxyCODONE 5 MG Tab PO PRN ×3 (08:55→20:30)
[2023-01-30] MEDS: Albumin Human 25 GM in Premix Bag 1 BAG IV SCH ×2 (08:56→17:15)
[2023-01-30] MEDS: VERIFY SCOP PATCH SCH (08:57)
[2023-01-30] MEDS: Bisacodyl 5 MG Tab PO SCH ×2 (08:58→20:14)
[2023-01-30] MEDS: Docusate Sodium 100 MG Cap PO SCH ×2 (08:58→20:14)
[2023-01-30] MEDS: Celecoxib 200 MG Cap PO SCH ×2 (08:58→20:14)
[2023-01-30] MEDS: Enoxaparin 40 MG/0.4 ML Syringe SUBCUT SCH (08:58)
[2023-01-30] MEDS: hydrOXYzine HCl 50 MG/ML SDV IM PRN ×3 (11:11→23:00)
[2023-01-30] MEDS: Pantoprazole 40 MG Tab.CR PO SCH (15:50)
[2023-01-30] MEDS: Tamsulosin 0.4 MG Cap.ER PO SCH (20:15)
[2023-01-31] MEDS: Albuterol/Ipratropium 3.0-0.5 MG/3 ML Neb Soln NEB SCH ×4 (02:07→21:25)
[2023-01-31] MEDS: Cyclobenzaprine 10 MG Tab PO SCH ×3 (02:56→17:00)
[2023-01-31] MEDS: oxyCODONE 5 MG Tab PO PRN ×3 (02:57→19:26)
[2023-01-31] MEDS: Meropenem 500 MG in Sodium Chloride 0.9% 50 ML IV SCH ×4 (03:03→21:24)
[2023-01-31] MEDS: Acetaminophen 500 MG Tab PO SCH ×3 (05:39→17:00)
[2023-01-31] MEDS ORDERED: Magnesium Hydroxide 400 MG/5 ML Susp 30 ML Cup PO ONE ×2 (07:30→16:44)
[2023-01-31] MEDS: Celecoxib 200 MG Cap PO SCH ×2 (08:04→21:25)
[2023-01-31] MEDS: Bisacodyl 5 MG Tab PO SCH ×2 (08:04→21:25)
[2023-01-31] MEDS: Enoxaparin 40 MG/0.4 ML Syringe SUBCUT SCH (08:04)
[2023-01-31] MEDS: Docusate Sodium 100 MG Cap PO SCH ×2 (08:04→21:25)
[2023-01-31] MEDS: VERIFY SCOP PATCH SCH (08:06)
[2023-01-31] MEDS: Dextrose 5%-Lactated Ringers 1,000 ML IV SCH (08:07)
[2023-01-31] MEDS: Scopolamine 1.5 MG Transdermal Patch TOP SCH (09:19)
[2023-01-31] MEDS ORDERED: Magnesium Hydroxide 400 MG/5 ML Susp 30 ML Cup PO PRN (15:30)
[2023-01-31] MEDS: Pantoprazole 40 MG Tab.CR PO SCH (16:54)
[2023-01-31] MEDS: Tamsulosin 0.4 MG Cap.ER PO SCH (21:25)
[2023-02-01] MEDS: Acetaminophen 500 MG Tab PO SCH ×2 (01:39→07:07)
[2023-02-01] MEDS: Albuterol/Ipratropium 3.0-0.5 MG/3 ML Neb Soln NEB SCH ×2 (01:39→07:25)
[2023-02-01] MEDS: Cyclobenzaprine 10 MG Tab PO SCH (02:40)
[2023-02-01] MEDS: oxyCODONE 5 MG Tab PO PRN ×2 (02:40→07:07)
[2023-02-01] MEDS ORDERED: Magnesium Hydroxide 400 MG/5 ML Susp 30 ML Cup PO PRN ×2 (07:45→08:00)
== END 2023-02-01 08:05 | disposition home or self-care (01) | DRG 221 ==
LOC: JP.ED 09:50 → JP.ICU 14:18 → JP.MS 14:46 → JP.ICU 14:48
PROVIDERS: ADMIT Internal Medicine; ATTEND Internal Medicine
PROC: 0D1N0ZP Bypass Sigmoid Colon to Rectum, Open Approach (ICD-10-PCS; principal; 2023-01-26)
PROC: 0DQ80ZZ Repair Small Intestine, Open Approach (ICD-10-PCS; 2023-01-26)
PROC: 0W9H0ZZ Drainage of Retroperitoneum, Open Approach (ICD-10-PCS; 2023-01-26)
PROC: 3E0M05Z Introduction of Adhesion Barrier into Peritoneal Cavity, Open Approach (ICD-10-PCS; 2023-01-26)
PROC: 0WQF0ZZ Repair Abdominal Wall, Open Approach (ICD-10-PCS; 2023-01-29)
DX: K57.20 Diverticulitis of large intestine with perforation and abscess without bleeding (principal); N17.9 Acute kidney failure, unspecified; K63.89 Other specified diseases of intestine; K65.1 Peritoneal abscess; E86.0 Dehydration; F17.210 Nicotine dependence, cigarettes, uncomplicated; B96.20 Unspecified Escherichia coli [E. coli] as the cause of diseases classified elsewhere; Z20.822 Contact with and (suspected) exposure to COVID-19; B95.4 Other streptococcus as the cause of diseases classified elsewhere; Z91.048 Other nonmedicinal substance allergy status; Z87.442 Personal history of urinary calculi
CPT/HCPCS: 0241U; 36415; 51701; 74019; 74019-26; 74176; 80048; 80053; 80305-QW; 81001; 83036; 83690; 83735; 84100; 85025; 85027; 86140; 87070; 87075; 87077; 87186; 87205; 88307; 94640; 96361; 96365; 96375; 99222; 99232; 99285; 99285-25; A9270-GY; C9113; J0131; J0171; J0330; J1100; J1170; J1650; J1885; J2020; J2060; J2185; J2405; J2704; J2710; J2795; J3010; J3410; J3480; J3490; J7030; J7120; J7121; J7620; P9047; Q0162

== ENCOUNTER 2025-03-13 06:48 | Emergency (ER) | payer BC ==
[2025-03-13] MEDS: Sodium Chloride 0.9% 10 ML Syringe FLUSH PRN (07:16)
[2025-03-13] MEDS: Ondansetron 4 MG/2 ML SDV IVPUSH ONE (07:16)
[2025-03-13] MEDS: fentaNYL 100 MCG/2 ML SDV IVPUSH ONE (07:17)
[2025-03-13] MEDS: Sodium Chloride 0.9% 1,000 ML IV SCH ×2 (07:19→08:45)
[2025-03-13 07:21] LABS: BASOPHILS ABSOLUTE AUTO 0.04 K/uL (0.00-0.10); BASOPHILS PERCENT AUTO 0.3 % (0.1-1.3); EOSINOPHILS PERCENT AUTO 0.1 % (0.0-5.4); HEMATOCRIT 44.5 % (38.4-49.7); HEMOGLOBIN 15.7 g/dL (12.9-16.9); IMMATURE GRAN ABSOLUTE AUTO 0.08 K/uL (0.00-0.23); IMMATURE GRAN PERCENT AUTO 0.5 % (0.0-0.7); LYMPHOCYTES ABSOLUTE AUTO 2.03 K/uL (0.8-3.3); LYMPHOCYTES PERCENT AUTO 13.3 % (11.4-47.7); MEAN CORPUSCULAR HEMOGLOBIN 32.5 pg (31.6-35.5); MEAN CORPUSCULAR HGB CONC 35.3 g/dL (31.6-35.5); MEAN CORPUSCULAR VOLUME 92.1 fL (81.4-99.0); MONOCYTES ABSOLUTE AUTO 0.61 K/uL (0.20-0.90); NEUTROPHILS ABSOLUTE AUTO 12.54 K/uL (1.0-7.6); NEUTROPHILS PERCENT AUTO 81.8 % (40.0-78.1); PLATELET COUNT,PLT 223 K/uL (130-375); RED BLOOD CELL COUNT 4.83 M/uL (4.14-5.76); WHITE BLOOD CELL COUNT,WBC 15.3 K/uL (3.2-11.0)
[2025-03-13 07:25] LABS: EOSINOPHILS ABSOLUTE AUTO 0.02 K/uL (0.00-0.40)
[2025-03-13 07:53] LABS: A/G RATIO 1.2 (1.2-2.2); ALANINE AMINOTRANSFERASE,ALT 22 U/L (12-78); ALKALINE PHOSPHATASE 88 U/L (46-116); ANION GAP 14.6 mmol/L (5.0-14.0); ASPARTATE AMNIOTRANSFERASE,AST 13 U/L (15-37); BILIRUBIN TOTAL 0.6 mg/dL (0.2-1.0); BLOOD UREA NITROGEN,BUN 17 mg/dL (7-18); CALCIUM 9.7 mg/dL (8.5-10.1); CARBON DIOXIDE,CO2 22 mmol/L (21-32); CHLORIDE,CL 103 mmol/L (100-108); ESTIMATED GFR 101 mL/min (>60); GLUCOSE RANDOM 186 mg/dL (74-106); POTASSIUM,K 3.6 mmol/L (3.6-5.2); PROTEIN TOTAL,TP 7.4 g/dL (6.4-8.2); SODIUM,NA 136 mmol/L (140-148)
[2025-03-13] MEDS: droPERidol 5 MG/2 ML SDV IVPUSH ONE (08:29)
[2025-03-13] MEDS: Sodium Chloride 0.9% 10 ML Syringe FLUSH ONE (08:42)
[2025-03-13] MEDS: Iopamidol 612 MG/ML 100 ML Bottle IV ONE (08:42)
[2025-03-13] MEDS: Sodium Chloride 0.9% 100 ML IV ONE (08:42)
[2025-03-13 08:43] LABS: APPEARANCE,URINE CLEAR (CLEAR); BILIRUBIN,URINE NEGATIVE (NEGATIVE); COLOR,URINE YELLOW (YELLOW); GLUCOSE,URINE NEGATIVE (NEGATIVE); KETONES,URINE 15 mg/dL (NEGATIVE); LEUKOCYTE ESTERASE,URINE NEGATIVE (NEGATIVE); NITRITE,URINE NEGATIVE (NEGATIVE); OCCULT BLOOD,URINE NEGATIVE (NEGATIVE); PROTEIN,URINE TRACE mg/dL (NEGATIVE); UROBILINOGEN,URINE 0.2 EU/dL (0.2-1.0)
[2025-03-13 08:49] LABS: AMORPHOUS SEDIMENT,URINE NOT SEEN; AMPHETAMINES SCREEN, URINE NEGATIVE (NEGATIVE); BACTERIA,URINE NOT SEEN; BARBITURATE SCREEN,URINE NEGATIVE (NEGATIVE); BENZODIAZEPINES SCREEN,URINE NEGATIVE (NEGATIVE); EPITHELIAL CELLS,URINE NOT SEEN; METHADONE SCREEN, URINE NEGATIVE (NEGATIVE); METHAMPHETAMINES SCREEN, URINE NEGATIVE (NEGATIVE); MUCUS,URINE NOT SEEN; OXYCODONE SCREEN,URINE NEGATIVE (NEGATIVE); PROPOXYPHENE SCREEN,URINE NEGATIVE (NEGATIVE); RBC,URINE 0-5 (0-5); THC SCREEN,URINE 50 NG/ML PRESUMPTIVE POSITIVE (NEGATIVE); WBC,URINE 0-5 (0-5)
== END 2025-03-13 10:18 | disposition home or self-care (01) ==
LOC: JP.ED 06:48
DX: R11.2 Nausea with vomiting, unspecified (principal); F12.90 Cannabis use, unspecified, uncomplicated; Z91.048 Other nonmedicinal substance allergy status; Z79.899 Other long term (current) drug therapy
CPT/HCPCS: 36415; 74177; 80053; 80305; 81001; 83605; 83690; 85025; 96361; 96374; 96375; 99284; J1790; J2405; J3010; J7030; Q9967